=== PATIENT | female | born 1985 | race American Indian/Alaskan Native ===

== ENCOUNTER 2016-09-14 11:35 | Emergency (ER) | payer SELFPAY ==
[2016-09-14 11:56] VITALS: BP 117/77
[2016-09-14] MEDS ORDERED: BOOSTRIX IM ONE (12:00)
--- NOTE | 2016-09-14 12:30 | XRay Report ---
LEFT FOOT, 3 views: History: Pain, foot infection, cellulitis The bony architecture is intact. Bony alignment is normal. No soft tissue abnormalities are seen. The joint spaces appear preserved. IMPRESSION: Unremarkable left foot.
[2016-09-14 12:49] LABS: Basophils % (Auto) 0.4 % (0.0-1.8); Eosinophils % (Auto) 0.8 % (0.0-4.3); Hemoglobin 13.5 gm/dl (10.1-14.3); Mean Corpuscular HGB Conc 33 % (30-34); Mean Corpuscular Hemoglobin 31 pg (28-32); Mean Corpuscular Volume 96 fl (79-97); Platelet Count 204 K/mm3 (140-440); Red Blood Count 4.29 M/mm3 (3.65-5.03); White Blood Count 10.6 K/mm3 (4.5-11.0)
[2016-09-14 12:56] LABS: Anion Gap 17 mmol/L; Blood Urea Nitrogen 14 mg/dL (7-17); Calcium 9.3 mg/dL (8.4-10.2); Carbon Dioxide 24 mmol/L (22-30); Glucose 98 mg/dL (65-100); Potassium 3.8 mmol/L (3.6-5.0); Sodium 141 mmol/L (137-145)
--- NOTE | 2016-09-14 14:28 | Emergency Department Report ---
ED General Adult HPI - General Chief complaint: Skin Rash Stated complaint: LT FOOT LAC/POSS INFECTION Time Seen by Provider: 09/14/16 13:35 Source: patient Mode of arrival: Ambulatory Limitations: No Limitations - History of Present Illness Initial comments: Patient comes into the ER today with complaints of left foot pain for the past 3 weeks. Patient states that 3 weeks ago she stepped on some glass in the yard and that she picked out all the glass afterwards and has been cleaning her foot with peroxide and alcohol since. Patient states that since that time, approximately one week ago she noticed that she started getting a black discoloration as well as cracked overall skin between her toes that has spread to her neck now. Patient believes that she may be having a fungal infection that has spread to her neck from her medicine with her foot. Patient is unsure as to when her last tetanus shot was. Patient states that the pain is worse whenever she ambulates and flexes her foot. Patient denies any body aches, fevers, chills. - Related Data Previous Rx's Medication Instructions Recorded Last Taken Type Fluconazole [Diflucan TAB] 150 mg PO DAILY #7 tablet 09/14/16 Unknown Rx Ketoconazole 2% [Nizoral] 30 gm TP DAILY #30 gm 09/14/16 Unknown Rx Sulfamethoxazole/Trimethoprim 1 each PO BID #20 tablet 09/14/16 Unknown Rx [Bactrim DS TAB] traMADol [Ultram 50 MG tab] 50 mg PO Q6HR PRN #20 tablet 09/14/16 Unknown Rx Allergies Allergy/AdvReac Type Severity Reaction Status Date / Time amoxicillin Allergy Swelling Verified 09/14/16 11:56 ED Review of Systems ROS: Stated complaint: LT FOOT LAC/POSS INFECTION Other details as noted in HPI Constitutional: denies: chills, fever Eyes: denies: eye pain, eye discharge, vision change ENT: denies: ear pain, throat pain Respiratory: denies: cough, shortness of breath, wheezing Cardiovascular: denies: chest pain, palpitations Endocrine: no symptoms reported Gastrointestinal: denies: abdominal pain, nausea, diarrhea Genitourinary: denies: urgency, dysuria, discharge Musculoskeletal: joint swelling, arthralgia. denies: back pain Skin: rash. denies: lesions Neurological: denies: headache, weakness, paresthesias Psychiatric: denies: anxiety, depression Hematological/Lymphatic: denies: easy bleeding, easy bruising ED Past Medical Hx - Past Medical History Previous Medical History?: No - Surgical History Past Surgical History?: No - Social History Smoking Status: Current Every Day Smoker Substance Use Type: Alcohol, Marijuana - Medications Home Medications: Home Medications Medication Instructions Recorded Confirmed Last Taken Type Fluconazole [Diflucan TAB] 150 mg PO DAILY #7 tablet 09/14/16 Unknown Rx Ketoconazole 2% [Nizoral] 30 gm TP DAILY #30 gm 09/14/16 Unknown Rx Sulfamethoxazole/Trimethoprim 1 each PO BID #20 tablet 09/14/16 Unknown Rx [Bactrim DS TAB] traMADol [Ultram 50 MG tab] 50 mg PO Q6HR PRN #20 tablet 09/14/16 Unknown Rx ED Physical Exam - General Limitations: No Limitations General appearance: alert, in no apparent distress - Head Head exam: Present: atraumatic, normocephalic - Eye Eye exam: Present: normal appearance - ENT ENT exam: Present: mucous membranes moist - Neck Neck exam: Present: normal inspection - Respiratory Respiratory exam: Present: normal lung sounds bilaterally. Absent: respiratory distress - Cardiovascular Cardiovascular Exam: Present: regular rate (normal heart rate of 80 bpm during my examination.), normal rhythm. Absent: systolic murmur, diastolic murmur, rubs, gallop - GI/Abdominal GI/Abdominal exam: Present: soft, normal bowel sounds - Extremities Exam Extremities exam: Present: tenderness (tenderness noted to left second through fifth toes), normal capillary refill, joint swelling (mild joint swelling noted to second, third MTP joints). Absent: full ROM (Limited range of motion of the left toes secondary to pain), pedal edema, calf tenderness - Back Exam Back exam: Present: normal inspection - Neurological Exam Neurological exam: Present: alert, oriented X3, CN II-XII intact, reflexes normal. Absent: motor sensory deficit - Psychiatric Psychiatric exam: Present: normal affect, normal mood - Skin Skin exam: Present: warm, dry, normal color, rash (dark, patchy, scaly appearing rash noted to bilateral sides of neck that is very similar to rash area noted to the left distal foot in areas of toes. While appearing skin noted between left 2 through 5 toes, broken skin noted to the left plantar fifth MTP joint as well as second MTP joint mild amount of erythematous noted between the second, third, fourth, fifth left toes.) ED Course Vital Signs 09/14/16 11:49 Temperature 98.7 F Pulse Rate 109 H Respiratory 17 Rate Blood Pressure 117/77 O2 Sat by Pulse 97 Oximetry ED Medical Decision Making - Lab Data Result diagrams: 09/14/16 12:21 09/14/16 12:21 Lab Results 09/14/16 09/14/16 09/14/16 Range/Units 11:47 12:21 12:21 WBC 10.6 (4.5-11.0) K/mm3 RBC 4.29 (3.65-5.03) M/mm3 Hgb 13.5 (10.1-14.3) gm/dl Hct 41.0 (30.3-42.9) % MCV 96 (79-97) fl MCH 31 (28-32) pg MCHC 33 (30-34) % RDW 15.0 (13.2-15.2) % Plt Count 204 (140-440) K/mm3 Lymph % (Auto) 21.1 (13.4-35.0) % [place] % (Auto) 9.1 H (0.0-7.3) % Eos % (Auto) 0.8 (0.0-4.3) % Baso % (Auto) 0.4 (0.0-1.8) % Lymph # 2.2 (1.2-5.4) K/mm3 [place] # 1.0 H (0.0-0.8) K/mm3 Eos # 0.1 (0.0-0.4) K/mm3 Baso # 0.0 (0.0-0.1) K/mm3 Seg Neutrophils % 68.6 (40.0-70.0) % Seg Neutrophils # 7.3 (1.8-7.7) K/mm3 Sodium 141 (137-145) mmol/L Potassium 3.8 (3.6-5.0) mmol/L Chloride 104.0 (98-107) mmol/L Carbon Dioxide 24 (22-30) mmol/L Anion Gap 17 mmol/L BUN 14 (7-17) mg/dL Creatinine 0.8 (0.7-1.2) mg/dL Estimated GFR > 60 ml/min BUN/Creatinine Ratio 17.50 % Glucose 98 (65-100) mg/dL POC Glucose 95 (70-105) Calcium 9.3 (8.4-10.2) mg/dL - Radiology Data Radiology results: report reviewed X-ray left foot: Unremarkable study. - Medical Decision Making Patient is nontoxic and hemodynamically stable. I believe patient's symptoms are related to her recent injury of left foot laceration. I informed patient that there is no need for wound closure at this time. Her delay healing may be secondary to the chronic use of hydrogen peroxide to wounds. I have instructed the patient to quit using the peroxide for cleaning and that she should only be using soap and water this time. Physical exam has me concerned for dual infections at this time. I believe the patient's getting a tinea infection that may have spread to her neck. I will start patient on medications properly to stop the infection as well as patient was placed in postop surgical shoe to limit range of motion of MTP joints during the healing stages. Patient is in agreement with treatment plan and patient is stable for discharge. Critical care attestation.: If time is entered above; I have spent that time in minutes in the direct care of this critically ill patient, excluding procedure time. ED Disposition Clinical Impression: Tinea pedis of left foot, Tinea corporis, Wound infection Disposition: DC-01 TO HOME OR SELFCARE Is pt being admited?: No Does the pt Need Aspirin: No Condition: Good Instructions: Tinea Pedis (ED), Tinea Corporis (ED), Wound Infection (ED) Prescriptions: Fluconazole [Diflucan TAB] 150 mg PO DAILY #7 tablet Ketoconazole 2% [Nizoral] 30 gm TP DAILY #30 gm Sulfamethoxazole/Trimethoprim [Bactrim DS TAB] 1 each PO BID #20 tablet traMADol [Ultram 50 MG tab] 50 mg PO Q6HR PRN #20 tablet PRN Reason: Pain Referrals: PRIMARY CARE, [Primary Care Provider] - 3-5 Days [facility] [Outside] - 3-5 Days Forms: Work/School Release Form(ED) Time of Disposition: 14:39
== END 2016-09-14 15:02 | disposition home or self-care (01) ==
LOC: ED 11:35
DX: T81.4XXA Infection following a procedure, initial encounter (principal); B35.3 Tinea pedis; B35.4 Tinea corporis; Y92.89 Other specified places as the place of occurrence of the external cause; F17.200 Nicotine dependence, unspecified, uncomplicated; F12.10 Cannabis abuse, uncomplicated
CPT/HCPCS: 36415; 80048; 82962; 85025; 90471; 90715; 99284